=== PATIENT | male | born 1940 | race Hispanic/Latino ===

== ENCOUNTER 2017-09-10 07:31 | Inpatient (IN) | payer MEDICARE, OTHER ==
--- NOTE | 2017-09-10 07:51 | ED PDOC ---
Arrival/HPI - General Chief Complaint: Shortness Of Breath Time Seen by Provider: 09/10/17 07:32 Historian: Patient - Critical Care Critical Care Minutes: 30 minutes - History of Present Illness Time/Duration: Other (3 weeks) Symptom Onset: Gradual Symptom Course: Worsening Severity Level: Moderate Activities at Onset: Rest Associated Symptoms (Text): 09/10/17 07:48 Patient complains of approximately a 3 week history of a cough congestion and shortness of breath. He has been seen by his PMD 3 times and the msws once with no improvement. He has had outpatient blood work and chest x-ray which are unrevealing. The shortness of breath became worse overnight. He denies any pain. He had a fever of 101. No chest pain. No sputum. No wheezing. There is a history of a pulmonary embolus many years ago following surgery for colon cancer. He is scheduled for an echocardiogram tomorrow. No history of coronary disease or CHF. He also had a urinalysis done at the beginning of his illness which was normal. He had negative blood cultures done on 09/07/2017. No abdominal pain nausea vomiting or diarrhea. No genitourinary symptoms. No injury or trauma. PMD: Dr. Lin Past Medical History - Provider Review Nursing Documentation Reviewed: Yes - Cardiac Hx Hypertension: Yes - Pulmonary Hx Respiratory Disorders: Yes Hx Lung Cancer: Yes (Had Chemo) Hx Pulmonary Embolism: Yes - Endocrine/Metabolic Hx Diabetes Mellitus Type 1: Yes - Psychiatric Hx Substance Use: No - Surgical History Other/Comment: Colon CA removal. Knee replacement. Kidney surgery. - Anesthesia Hx Anesthesia: Yes Hx Anesthesia Reactions: No Hx Malignant Hyperthermia: No Family/Social History - Physician Review Nursing Documentation Reviewed: Yes Family/Social History: Unknown Family HX Smoking Status: Never Smoked Hx Alcohol Use: No Hx Substance Use: No Allergies/Home Meds Allergies/Adverse Reactions: Allergies Penicillins Allergy (Verified 09/10/17 07:38) URTICARIA sulfamethoxazole [From Bactrim] Allergy (Verified 09/10/17 07:38) FATIGUE Confusion trimethoprim [From Bactrim] Allergy (Verified 09/10/17 07:38) FATIGUE Confusion morphine Adverse Reaction (Verified 09/10/17 07:38) VOMITING low bp Home Medications: Home Meds Medication Instructions Recorded Confirmed Chlorthalidone [Hygroton] 12.5 mg PO DAILY 09/10/17 09/10/17 Dutasteride [Avodart] 0.5 mg PO DAILY 09/10/17 09/10/17 GlipiZIDE [Glucotrol] 5 mg PO BID 09/10/17 09/10/17 Levothyroxine [Synthroid] 75 mcg PO DAILY 09/10/17 09/10/17 Linagliptin [Tradjenta] 5 mg PO DAILY 09/10/17 09/10/17 [id number] Ethyl Esters 1 GM 1 gm PO BID 09/10/17 09/10/17 [Lovaza] Simvastatin [Zocor] 20 mg PO DAILY 09/10/17 09/10/17 Warfarin [Coumadin] 7.5 mg PO DAILY 09/10/17 09/10/17 Review of Systems - Physician Review All systems were reviewed & negative as marked: Yes - Review of Systems Constitutional: Fatigue, Fevers Respiratory: SOB, Cough. absent: Sputum, Wheezing Cardiovascular: absent: Chest Pain, Palpitations, Syncope Gastrointestinal: absent: Abdominal Pain, Diarrhea, Nausea, Vomiting Genitourinary Male: absent: Dysuria, Frequency, Hematuria Skin: absent: Rash Neurological: absent: Headache, Dizziness, Focal Weakness Physical Exam Vital Signs Reviewed: Yes Vital Signs Temp Pulse Resp BP Pulse Ox 09/10/17 09:42 85 16 126/75 93 L 09/10/17 09:10 89 16 121/74 93 L 09/10/17 09:09 121/74 09/10/17 08:00 16 94 L 09/10/17 07:46 99.2 F 108 H 142/71 94 L Temperature: Afebrile Blood Pressure: Normal Pulse: Regular Respiratory Rate: Tachypneic Appearance: Positive for: Well-Appearing, Non-Toxic, Uncomfortable, Other (Mild respiratory distress with tachypnea) Pain Distress: None Mental Status: Positive for: Alert and Oriented X 3 - Systems Exam Head: Present: Atraumatic, Normocephalic Pupils: Present: PERRL Extroacular Muscles: Present: EOMI Conjunctiva: Present: Normal Ears: Present: NORMAL TM, Normal Canal. No: Erythema Mouth: Present: Moist Mucous Membranes Pharnyx: No: ERYTHEMA, EXUDATE, TONSILS ENLARGED Neck: Present: Normal Range of Motion Respiratory/Chest: Present: Respiratory Distress, Decreased Breath Sounds, Rales (Bibasilar rales, mild), Tachypneic. No: Accessory Muscle Use, Wheezes, Retracting, Rhonchi, Tender to Palpation Cardiovascular: Present: Regular Rate and Rhythm, Normal S1, S2, Tachycardic. No: Murmurs Abdomen: Present: Normal Bowel Sounds, Hernias. No: Tenderness, Distention, Peritoneal Signs, Rebound, Guarding Back: Present: Normal Inspection. No: CVA Tenderness Upper Extremity: Present: Normal Inspection. No: Cyanosis, Edema Lower Extremity: Present: Normal Inspection. No: Edema Neurological: Present: GCS=15, CN II-XII Intact, Speech Normal, Motor Func Grossly Intact Skin: Present: Warm, Dry, Normal Color. No: Rashes Psychiatric: Present: Alert, Oriented x 3, Normal Insight, Normal Concentration Medical Decision Making ED Course and Treatment: 09/10/17 08:04 EKG shows normal sinus rhythm rate approximately 100 with a right bundle branch block and no acute ST or T-wave changes, Q waves inferiorly and anteriorly and no old available for comparison 09/10/17 08:08 Patient has an elevated lactate, but an x-ray consistent with possible CHF or bilateral pneumonia. He will not be given IV fluids until BNP is available and chest x-ray is reviewed by radiologist. 09/10/17 08:48 Chest x-ray as read by the radiologist is consistent with pulmonary edema or bilateral pneumonia. Still waiting for BNP. 09/10/17 09:31 Discussed with , Shama and Carole who excepts the ICU. - Lab Interpretations Lab Results: 09/10/17 08:00 09/10/17 08:00 Lab Results 09/10/17 09:28: POC Glucose (mg/dL) 300 H 09/10/17 08:48: Urine Color Yellow, Urine Appearance Clear, Urine pH 5.5, Ur Specific [place] 1.025, Urine Protein 30 H, Urine Glucose (UA) 250 H, Urine Ketones Negative, Urine Blood Large H, Urine Nitrate Negative, Urine Bilirubin Negative, Urine Urobilinogen 0.2, Ur Leukocyte Esterase Small H, Urine RBC Tntc , Urine WBC 10 - 15, Ur Epithelial Cells 0 - 2, Urine Bacteria Small 09/10/17 08:37: pCO2 31 L, pO2 49.0 L, HCO3 22.6, ABG pH 7.47 H, ABG Total CO2 23.6, ABG O2 Saturation 88.2 L, ABG O2 Content 13.2 L, ABG Base Excess -0.5, ABG Hemoglobin 11.0 L, ABG Carboxyhemoglobin 2.8 H, POC ABG HHb (Measured) 11.4 H, ABG Methemoglobin 0.7, ABG O2 Capacity 15.0 L, Hgb O2 Saturation 85.2 L, FiO2 21.0 09/10/17 08:30: PT 35.4 H, INR 3.14 H, APTT 29.0, D-Dimer, Quantitative 699 H 09/10/17 08:14: POC Glucose (mg/dL) 334 H 09/10/17 08:00: Sodium 136, Chloride 101, Potassium 4.0, Carbon Dioxide 25, Anion Gap 14, BUN 37 H, Creatinine 1.0, Est GFR ( Amer) > 60, Est GFR ( Non-Af Amer) > 60, Random Glucose 331 H* D, Calcium 9.6, Total Bilirubin 1.3, AST 20, ALT 33, Alkaline Phosphatase 56, Lactate Dehydrogenase 578, Total Creatine Kinase 44, Troponin I 0.26 H*, NT-Pro-B Natriuret Pep 89358 H, Total Protein 6.9, Albumin 3.6, Globulin 3.3, Albumin/Globulin Ratio 1.1 09/10/17 08:00: pO2 38, VBG pH 7.34, VBG pCO2 49.0, VBG HCO3 26.4, VBG Total CO2 27.9, VBG O2 Sat (Calc) 68.7 H, VBG Base Excess 0.0, VBG Potassium 3.9, Sodium 135.0, Chloride 100.0, Glucose 356 H, Lactate 2.3 H, FiO2 21.0, Venous Blood Potassium 3.9 09/10/17 08:00: WBC 10.6, RBC 4.41, Hgb 12.2 L, Hct 37.5 L, MCV 85.0, MCH 27.7, MCHC 32.5, RDW 14.1, Plt Count 221, MPV 10.0, Gran % 84.5 H, Lymph % (Auto) 8.4 L, [place] % (Auto) 6.1 H, Eos % (Auto) 0.8 L, Baso % (Auto) 0.2, Gran # 8.94 H, Lymph # 0.9 L, [place] # 0.7 H, Eos # 0.1, Baso # 0.02 I have reviewed the lab results: Yes - RAD Interpretation Radiology Orders: 09/10/17 07:46 CHEST PORTABLE [RAD] Stat Chest one view shows bilateral infiltrates or pulmonary edema. Mild cardiomegaly. Cook Mess: ED Physician - EKG Interpretation Interpreted by ED Physician: Yes Type: 12 lead EKG - Medication Orders Current Medication Orders: Atorvastatin Calcium (Lipitor) 10 mg PO HS HUMBERTO Furosemide (Lasix) 40 mg IVP DAILY HUMBERTO Glipizide (Glucotrol) 5 mg PO BID HUMBERTO Insulin Human Regular (Humulin R Med) 0 units SC ACHS HUMBERTO PRN Reason: Protocol Levothyroxine Sodium (Synthroid) 75 mcg PO DAILY HUMBERTO Discontinued Medications Aspirin (Aspirin Chewable) 324 mg PO ONCE ONE Stop: 09/10/17 08:50 Last Admin: 09/10/17 09:09 Dose: 324 mg Furosemide (Lasix) 40 mg IVP ONCE ONE Stop: 09/10/17 08:50 Last Admin: 09/10/17 09:09 Dose: 40 mg MAR Blood Pressure Document 09/10/17 09:09 AD (Rec: 09/10/17 09:09 [id number] Blood Pressure Blood Pressure (100/60-150/90) 121/74 IVP Administration Document 09/10/17 09:09 AD (Rec: 09/10/17 09:09 AD [id number]) Charges for Administration # of IVP Administrations 1 Levofloxacin/Dextrose (Levaquin 500mg) 500 mg in 100 mls @ 100 mls/hr IVPB STAT STA Stop: 09/10/17 08:59 Last Admin: 09/10/17 08:44 Dose: 100 mls/hr eMAR Start Stop Document 09/10/17 08:44 AD (Rec: 09/10/17 08:44 AD [id number]) Intravenous Solution Start Date 09/10/17 Start Time 08:44 Insulin Human Regular (Humulin R) 20 units SC ONCE STA Stop: 09/10/17 08:19 Last Admin: 09/10/17 08:44 Dose: 20 units MAR Blood Glucose Document 09/10/17 08:44 AD (Rec: 09/10/17 08:44 AD [id number]) Blood Glucose Finger Stick Blood Glucose (70-120) 334 Subcutaneous Administrations Document 09/10/17 08:44 AD (Rec: 09/10/17 08:44 AD [id number]) Injection Site MAR Injection Site Left Abdomen Charges for Administration # of Subcutaneous Administrations 1 Nitroglycerin (Nitro-Bid 2% Oint) 1 ea TOP STAT STA Stop: 09/10/17 08:50 Last Admin: 09/10/17 09:09 Dose: 1 ea Disposition/Present on Arrival - Present on Arrival Any Indicators Present on Arrival: No History of DVT/PE: Yes History of Uncontrolled Diabetes: No Urinary Catheter: No History of Decub. Ulcer: No History Surgical Site Infection Following: None - Disposition Have Diagnosis and Disposition been Completed?: Yes Diagnosis: Pulmonary edema, Myocardial infarction, Hypoxia, Hyperglycemia, Elevated d- dimer, Dyspnea, Lactic acidosis Disposition: HOSPITALIZED Disposition Time: 09:33 Patient Plan: Admission, ICU Patient Problems: Current Active Problems Problem Status Onset Dyspnea Acute Elevated d-dimer Acute Hyperglycemia Acute Hypoxia Acute Lactic acidosis Acute Myocardial infarction Acute Pulmonary edema Acute Condition: CRITICAL
[2017-09-10] MEDS ORDERED: levoFLOXacin 500 mg in D5W 500 MG/100 ML BAG IVPB STA (08:00)
[2017-09-10 08:04] LABS: VENOUS BLOOD PH 7.34 (7.32-7.43)
[2017-09-10] MEDS ORDERED: Insulin Regular 1 UNITS/0.01 ML ML SC STA (08:18)
[2017-09-10 08:20] LABS: BASO # 0.02 K/mm3 (0.0-2.0); BASO % 0.2 % (0.0-3.0); EOS # 0.1 (0.0-0.7); EOS % 0.8 % (1.5-5.0); GRAN # 8.94 (1.4-6.5); GRAN % 84.5 % (50.0-68.0); HEMATOCRIT 37.5 % (42.0-52.0); LYMPH # 0.9 (1.2-3.4); LYMPH % 8.4 % (22.0-35.0); MEAN CORPUSCULAR HEMOGLOBIN 27.7 pg (25.0-35.0); MEAN CORPUSCULAR HGB CONC 32.5 g/dl (31.0-37.0); MONO # 0.7 (0.1-0.6); MONO % 6.1 % (1.0-6.0); RED CELL DISTRIBUTION WIDTH 14.1 % (11.5-14.5); WHITE BLOOD COUNT 10.6 10^3/ul (4.5-11.0)
--- NOTE | 2017-09-10 08:42 | RAD ---
HISTORY: sob COMPARISON: No prior. FINDINGS: LUNGS: Extensive diffuse bilateral opacity, nonspecific. This may reflect a pneumonia or pulmonary edema. PLEURA: Small right pleural effusion. No evidence of left pleural effusion. No pneumothorax. CARDIOVASCULAR: Normal. OSSEOUS STRUCTURES: No significant abnormalities. VISUALIZED UPPER ABDOMEN: Normal. OTHER FINDINGS: None. IMPRESSION: Extensive bilateral pulmonary opacity. Nonspecific. See above. Small right pleural effusion.
[2017-09-10 08:47] LABS: ARTERIAL BLOOD GAS HCO3 22.6 mmol/L (21-28); ARTERIAL BLOOD GAS O2 CONTENT 13.2 ML/dl (15-23); ARTERIAL BLOOD GAS PH 7.47 (7.35-7.45); ARTERIAL BLOOD HGB O2 SAT 85.2 % (95.0-98.0); CARBOXYHEMOGLOBIN 2.8 % (0.5-1.5); HHB 11.4 % (0-5); METHEMOGLOBIN 0.7 % (0.0-3.0)
[2017-09-10 08:48] LABS: ALB/GLOB RATIO 1.1 (1.1-1.8); ALKALINE PHOSPHATASE 56 U/L (38-126); ALT/SGPT 33 U/L (7-56); AST/SGOT 20 U/L (17-59); BILIRUBIN,TOTAL 1.3 mg/dL (0.2-1.3); BLOOD UREA NITROGEN 37 mg/dL (7-21); CALCIUM 9.6 mg/dL (8.4-10.5); CARBON DIOXIDE 25 mmol/L (21-33); CHLORIDE 101 mmol/L (98-107); GFR AFRICAN-AMERICAN > 60; SODIUM 136 mmol/L (132-148); TOTAL PROTEIN 6.9 g/dL (5.8-8.3); TROPONIN I 0.26 ng/mL
[2017-09-10] MEDS ORDERED: Nitroglycerin 2% Ointment Foilpak UD TOP STA (08:49)
[2017-09-10 08:59] LABS: INR 3.14 (0.93-1.08)
[2017-09-10 09:04] LABS: PH,URINE 5.5 (4.7-8.0); URINE BILIRUBIN NEGATIVE (NEGATIVE); URINE BLOOD LARGE (NEGATIVE); URINE GLUCOSE (UA) 250 mg/dL (NEGATIVE); URINE KETONE NEGATIVE (NEGATIVE); URINE LEUKOCYTE ESTERASE SMALL Leu/uL (NEGATIVE); URINE PROTEIN 30 mg/dL (<30 mg/dL); URINE UROBILINOGEN 0.2 E.U./dL (<1 E.U./dL)
[2017-09-10 09:05] LABS: GLUCOSE,RANDOM 331 mg/dL (70-110)
[2017-09-10 09:08] LABS: URINE APPEARANCE CLEAR (CLEAR); URINE COLOR YELLOW (YELLOW)
[2017-09-10 09:22] LABS: URINE BACTERIA SMALL (NEG); URINE EPITHELIAL CELLS 0 - 2 /hpf (0-5); URINE RBC TNTC /hpf (0-2)
[2017-09-10] MEDS ORDERED: Insulin Regular 100 UNITS in Sodium Chloride 0.9% 99 ML IV PRN (10:50)
[2017-09-10 11:25] LABS: VENOUS BLOOD PH 7.46 (7.32-7.43)
[2017-09-10 11:54] VITALS: BMI 25.9
[2017-09-10] MEDS: Aztreonam 1 Gm in NS 100mL 100 ML IVPB SCH ×2 (14:47→21:51)
--- NOTE | 2017-09-10 14:52 | CARD ---
APPROVED REPORT EKG Measurement Heart [id number] <Conclusion> Sinus rhythm with 1st degree AV block Left axis deviation Right bundle branch block Anteroseptal infarct, age undetermined Abnormal ECG
[2017-09-10] MEDS ORDERED: Vancomycin 1gm in NS 250ml 1 GM/250 ML BAG IVPB ONE (15:01)
--- NOTE | 2017-09-10 15:06 | CP.PCM.CON ---
History of Present Illness - History of Present Illness History of Present Illness: 77 year old male with PMH of pulmonary embolism many years ago on anticoagulation, DM, HTN, history colon cancer S/P surgery, history of lung cancer and bilateral lung base pulmonary fibrosis S/P chemotherapy, history of kidney surgery and knee replacement was brought in to [facility] because of worsening cough and SOB over the past 1-2 days. He was seen last by his Roller Turner 3 days ago, was having cough, but not as severe and was not short of breath at that time. About 2-3 weeks ago, he started having cough and some shortness of breath as well as generalized weakness. A week later he developed some fevers at home and saw his PMD and was given Levaquin. After completion of the course, his cough improved. He has not had fever since a week ago. Yesterday he was having symptoms of heartburn as well. He denies headache or dizziness, no chest pain, no rhinorrhea, no sore throat, no nausea or vomiting, no dysuria, no abdominal pain, no diarrhea. He denies recent travel outside of [place] in the past 3 months and denies animal contacts. He states that he has received pneumococcal vaccines and Flu vaccine this year. In the ED, he had CXR done which showed bilateral pulmonary infiltrates. He has been given diuretics and his breathing has improved. There is still concern for pneumonia and Infectious diseases consult is requested to further evaluate and manage. Review of Systems - Review of Systems All systems: reviewed and no additional remarkable complaints except (as per HPI ) Past Patient History - Past Social History Smoking Status: Never Smoked - CARDIAC Hx Hypertension: Yes - PULMONARY Hx Respiratory Disorders: Yes Hx Lung Cancer: Yes (Had Chemo) Hx Pulmonary Embolism: Yes - ENDOCRINE/METABOLIC Hx Diabetes Mellitus Type 1: Yes - MUSCULOSKELETAL/RHEUMATOLOGICAL Hx Falls: Yes - GASTROINTESTINAL Other/Comment: hx colon Ca with partial colectomy - PSYCHIATRIC Hx Substance Use: No - SURGICAL HISTORY Other/Comment: Colon CA removal. Knee replacement. Kidney surgery. - ANESTHESIA Hx Anesthesia: Yes Hx Anesthesia Reactions: No Hx Malignant Hyperthermia: No Meds Allergies/Adverse Reactions: Allergies Allergy/AdvReac Type Severity Reaction Status Date / Time Penicillins Allergy URTICARIA Verified 09/10/17 07:38 sulfamethoxazole Allergy FATIGUE Verified 09/10/17 07:38 [From Bactrim] trimethoprim [From Bactrim] Allergy FATIGUE Verified 09/10/17 07:38 morphine AdvReac VOMITING Verified 09/10/17 07:38 - Medications Medications: Current Medications Atorvastatin Calcium (Lipitor) 10 mg PO HS HUMBERTO Furosemide (Lasix) 40 mg IVP DAILY [facility] Insulin Human Regular 100 (units/ Sodium Chloride) 100 mls @ 3 mls/hr IV .Q24H PRN; Protocol; 3 UNITS/HR PRN Reason: TITRATE PER MD ORDER Last Admin: 09/10/17 12:08 Dose: 5 units/hr, 5 mls/hr Insulin Human Regular (Humulin R Med) 0 units SC ACHS HUMBERTO PRN Reason: Protocol Levothyroxine Sodium (Synthroid) 75 mcg PO DAILY HUMBERTO Metoprolol Tartrate (Lopressor) 25 mg PO Q12 HUMBERTO Physical Exam - Constitutional Appears: Non-toxic, No Acute Distress - Head Exam Head Exam: NORMAL INSPECTION - ENT Exam ENT Exam: Mucous Membranes Moist - Neck Exam Neck exam: Negative for: Lymphadenopathy, Meningismus - Respiratory Exam Respiratory Exam: Rales (scattered) - Cardiovascular Exam Cardiovascular Exam: +S1, +S2 - GI/Abdominal Exam GI & Abdominal Exam: Soft. absent: Tenderness Results - Vital Signs Recent Vital Signs: Last Vital Signs Temp 97.9 F 09/10/17 10:01 Pulse 89 09/10/17 12:30 Resp 27 H 09/10/17 12:30 BP 110/58 L 09/10/17 12:00 Pulse Ox 93 L 09/10/17 12:30 - Labs Result Diagrams: 09/10/17 08:00 09/10/17 08:00 Labs: Laboratory Results - last 24 hr 09/10/17 11:20 pO2 48 VBG pH 7.46 H VBG pCO2 36.0 L VBG HCO3 25.6 VBG Total CO2 26.7 VBG O2 Sat (Calc) 86.0 H VBG Base Excess 2.0 VBG Potassium 3.4 L Sodium 134.0 Chloride 102.0 Glucose 269 H Lactate 2.1 FiO2 21.0 Venous Blood Potassium 3.4 L Assessment & Plan - Assessment and Plan (Free Text) Plan: Assessment Systemic Inflammatory Response Syndrome (tachypnea and tachycardia), consider due to acute pulmonary edema possibly from acute CHF R/O acute myocardial infarction, R/O healthcare-associated pneumonia (since the patient was on Levaquin about a week ago) history of pulmonary embolism many years ago on anticoagulation DM HTN history colon cancer S/P surgery history of lung cancer and bilateral lung base pulmonary fibrosis S/P chemotherapy history of kidney surgery and knee replacement Plan Started the patient on a dose of IV Vancomycin, as well Azactam and Doxycycline pending blood cx, procalcitonin, urine Legionella Ag; patient currently has no fever and WBC count is normal, making acute CHF more likely, but still need to rule out pneumonia will monitor clinically discussed with family
[2017-09-10] MEDS: Insulin Reg-MEDIUM-Coverage SC SCH ×2 (15:44→18:39)
[2017-09-10] MEDS: Levothyroxine 75 MCG TAB PO SCH (15:45)
--- NOTE | 2017-09-10 21:51 | HP ---
CHIEF COMPLAINT AND HISTORY OF PRESENT ILLNESS: This is a 77-year-old male who is coming in to the hospital because of cough, congestion, and difficulty breathing. He had gone to his rim fire priming operator, who had an EKG done. He states the EKG was okay. He had seen Dr. Sesay. The patient has been having worsening in his cough and congestion, so came in for further evaluation. He was found to be hypoxic in the emergency room. He was placed on O2. His O2 saturation was 85%. He says he is feeling a bit better. He was given IV Lasix because of chest x-ray that shows pulmonary congestion. He has no nausea, no vomiting. The family states he has been having a fever of 101 at home. No headaches, no dizziness. No dysuria or frequency. No nocturia. All of the review of symptoms are within normal limits except what is mentioned. ALLERGIES: PENICILLIN, SULFAMETHOXAZOLE, TRIMETHOPRIM AND MORPHINE. PAST MEDICAL HISTORY: Hypertension, diabetes type 2, hypothyroidism, lung cancer. He had colon cancer. PAST SURGICAL HISTORY: Knee replacement and kidney surgery. SOCIAL HISTORY: He never smoked. He denies drug use. PHYSICAL EXAMINATION VITAL SIGNS: He has a temperature of 99.2, pulse of 108, blood pressure is 142/71, respirations 94. Height is 6 feet 1 inch, weight is 195 pounds. BMI is 25.7. GENERAL: The patient lying in bed, uncomfortable, and in no acute distress. HEENT: Atraumatic and normocephalic. Anicteric sclerae. Moist mucosa. [place] conjunctivae. No oral lesions. NECK: No JVD, anterior and posterior adenopathy, thyromegaly, or bruits. CARDIOVASCULAR: S1 and S2 regular. No murmur, rubs, or gallop. LUNGS: Good bilateral air entry. Bilateral rales at the bases, no rhonchi. ABDOMEN: Bowel sounds are positive. Soft, nontender and nondistended. No hepatosplenomegaly. No rebound and no guarding. EXTREMITIES: No cyanosis, clubbing, or edema. NEUROLOGIC: No facial asymmetry. Tongue is midline. No uvula deviation. Power is 5/5 upper extremity and lower extremity. Sensation intact in upper extremity and lower extremity. PSYCHIATRIC: She is awake, alert and oriented x3. No anxiety or depression. She has normal affect. GENITOURINARY: No CVA tenderness. VASCULAR: 2+ pulses in the carotid pulses and pedal pulses. SKIN: No erythema or nodules SPINE: Shows normal curvature. EXTREMITIES: No Cyanosis and clubbing, no edema. LABORATORY DATA: White count of 10.6, hemoglobin 12.2 and platelet count is 221. INR is 3.1. D-dimer is 699. He has blood gas that showed a pH of 7.47, his pCO2 is 31, his bicarb is 25. He has a troponin of 0.26, proBNP is 11,300. His albumin is 3.6. His urine shows blood is large, nitrites are negative, bilirubin is negative. Chest x-ray shows bilateral pulmonary edema. His EKG shows sinus tachycardia at 100. He has first degree AV block. QTc is 469. He has right bundle-branch block. ASSESSMENT: 1. Acute congestive heart failure. 2. Penicillin allergy/Bactrim allergy. 3. Diabetes type 2. 4. Hypothyroidism. 5. Hypertension. PLAN: The patient is going to be admitted to the hospital into the ICU. He is given IV diuretic therapy. He was started on IV antibiotics. Blood cultures and urine cultures have been done. He will need an echocardiogram. I will continue his Zocor for his dyslipidemia. He is going to be on Synthroid for hypothyroidism. He is also going to need beta-blockers because of his elevated troponin. He may have acute coronary syndrome. We will repeat his troponin. We will get Cardiology evaluation as well as ID evaluation. Aiden Lin MD
--- NOTE | 2017-09-10 22:36 | PN ---
DATE: 09/10/2017 HISTORY OF PRESENT ILLNESS: This is a 77-year-old gentleman with history of diabetes, high blood pressure, who presented with a few weeks history of cough, congestion and shortness of breath. His symptoms did not go away. He did not complain of chest pain though; however, his physical tolerance became more and more limited due to shortness of breath. He had low grade fever but no chills, sweats. No nausea, no vomiting, no diarrhea. The patient denies wheezing. The patient has a remote history of pulmonary embolus following surgery for colon cancer. He was scheduled for echocardiogram for tomorrow. Of note, he did not have a history of coronary artery disease or CHF. PAST MEDICAL HISTORY: Hypertension, lung cancer, diabetes, history of colon CA in the past. SOCIAL HISTORY: The patient is a lifelong nonsmoker. No alcohol or illicit drug abuse. FAMILY HISTORY: Noncontributory. ALLERGIES: PENICILLIN, SULFA DRUGS, MORPHINE. HOME MEDICATIONS: Chlorthalidone, Avodart, Glucotrol, Synthroid, Tradjenta, Zocor, and warfarin. REVIEW OF SYSTEMS: Review of 12-organ system other than mentioned in history of present illness is negative. PHYSICAL EXAMINATION: VITAL SIGNS: Temperature 99.2, heart rate 85, blood pressure 126/75, respiratory rate 16, oxygen saturation 93% on 2 liters nasal cannula. ENT: Head and neck atraumatic. LUNGS: Few crackles bibasilar. HEART: Regular rate and rhythm. S1 and S2 normal. ABDOMEN: Soft, nontender, nondistended. MUSCULOSKELETAL: Trace bilateral pedal and ankle edema. NEURO: The patient moves all extremities spontaneously. SKIN: Moist. PSYCH: The patient is alert and oriented x3. LABORATORY DATA: INR 3.14. WBC 10.6, hemoglobin 12.2, platelet count 221. Sodium 136, potassium 4, chloride 101, carbon dioxide 25, BUN 37, creatinine 1, glucose 300, AST 20, ALT 30, total bilirubin 1.3, troponin 0.16. ProBNP 11,300. IMAGING STUDIES: Chest x-ray showed bilateral vascular congestion versus interstitial infiltrate bilaterally. EKG showed right bundle-branch block with left anterior fascicular block. Substantial T-wave inversion in V2, V3, V4, which appears to be correspond to septal ischemia. ASSESSMENT AND PLAN: This is a 77-year-old gentleman who presented with acute or subacute cardiogenic pulmonary edema due to [id number] myocardial infarction/congestive heart failure. The patient will be on aspirin, beta-blockers, and statins. The patient has been on Coumadin for history of pulmonary embolism and his INR is therapeutic. Whether or not to add Plavix will be deferred to cardiology service which also was called. We will order echocardiogram as well. We will trend troponin. Possibility of septic cardiomyopathy rather than primary cardiac event cannot be ruled out as therapeutic AC makes coronary tromboembolic event less likely. The patient also had low-grade fever. I agree with septic workup, procalcitonin and antibiotics at present time. For time being, the patient will be monitoring in the ICU. The patient denies any chest pain, very comfortable, not in respiratory or otherwise distress. The patient has highly elevated glucose. I will start the patient on insulin drip. I will hold the patient's p.o. hypoglycemic (sulfonylurea) to minimize risk of kidney injury. I will continue to target euvolemia, euglycemia, normothermia, and oxygen saturation more than 90%. The patient will be on diuretics. We will continue with gastrointestinal prophylaxis. ccm time 40 min Shay Lam MD MTDAnnelise
[2017-09-11] MEDS: Aztreonam 1 Gm in NS 100mL 100 ML IVPB SCH (05:20)
[2017-09-11 06:58] LABS: HEMATOCRIT 35.7 % (42.0-52.0); MEAN CELL VOLUME 85.2 fl (80.0-105.0); MEAN CORPUSCULAR HEMOGLOBIN 27.4 pg (25.0-35.0); MEAN CORPUSCULAR HGB CONC 32.2 g/dl (31.0-37.0); MEAN PLATELET VOLUME 9.8 fl (7.0-11.0); RED CELL DISTRIBUTION WIDTH 14.5 % (11.5-14.5); WHITE BLOOD COUNT 10.4 10^3/ul (4.5-11.0)
[2017-09-11 07:24] LABS: ALKALINE PHOSPHATASE 50 U/L (38-126); ALT/SGPT 32 U/L (7-56); AST/SGOT 21 U/L (17-59); BLOOD UREA NITROGEN 33 mg/dL (7-21); CALCIUM 9.7 mg/dL (8.4-10.5); CARBON DIOXIDE 27 mmol/L (21-33); CHLORIDE 105 mmol/L (98-107); GFR AFRICAN-AMERICAN > 60; GLUCOSE,RANDOM 152 mg/dL (70-110); MAGNESIUM 1.8 mg/dL (1.7-2.2); PHOSPHOROUS 2.8 mg/dL (2.5-4.5); POTASSIUM 3.9 mmol/L (3.6-5.0); SODIUM 139 mmol/L (132-148); TOTAL PROTEIN 6.4 g/dL (5.8-8.3)
[2017-09-11 08:06] LABS: TROPONIN I 0.48 ng/mL
--- NOTE | 2017-09-11 08:54 | RAD ---
HISTORY: sob, repeat study COMPARISON: Portable chest 09/10/2017. FINDINGS: LUNGS: Heterogeneous bilateral infiltrates are worsened at the apices, right greater than left, however, bilateral bases appear better aerated with diminishing infiltrates appreciated there. PLEURA: Minimal right pleural effusion is questioned. None is seen the left and there is no pneumothorax bilaterally. CARDIOVASCULAR: Stable prominent cardiac silhouette. No definite pulmonary vascular derangement. OSSEOUS STRUCTURES: No significant abnormalities. VISUALIZED UPPER ABDOMEN: Normal. OTHER FINDINGS: None. IMPRESSION: Mixed pattern of increasing bilateral upper lobe airspace disease and diminished mid to inferior pulmonary airspace disease. Minimal right pleural effusion not excluded. Stable cardiomegaly.
[2017-09-11] MEDS: Levothyroxine 75 MCG TAB PO SCH (09:28)
[2017-09-11 10:05] LABS: INR 3.53 (0.93-1.08)
--- NOTE | 2017-09-11 10:28 | CP.PCM.PN ---
Subjective - Date & Time of Evaluation Date of Evaluation: 09/11/17 Time of Evaluation: 10:10 - Subjective Subjective: Still has shortness of breath even at rest, cough is slightly improved, no fevers overnight, no nausea or vomiting, no diarrhea. Objective - Vital Signs/Intake and Output Vital Signs (last 24 hours): Temp Pulse Resp BP Pulse Ox 97.9 F 92 H 28 H 137/84 88 L 09/10/17 10:01 09/11/17 06:31 09/11/17 06:31 09/11/17 06:31 09/11/17 06:31 Intake and Output: 09/10/17 09/11/17 18:59 06:59 Intake Total 590 500 Output Total 1300 800 Balance -710 -300 - Medications Medications: Current Medications Atorvastatin Calcium (Lipitor) 40 mg PO HS [facility] Last Admin: 09/10/17 21:52 Dose: 40 mg Doxycycline Hyclate (Doryx) 100 mg PO Q12 [facility] PRN Reason: Protocol Last Admin: 09/10/17 21:52 Dose: 100 mg Furosemide (Lasix) 40 mg IVP DAILY [facility] Insulin Human Regular 100 (units/ Sodium Chloride) 100 mls @ 3 mls/hr IV .Q24H PRN; Protocol; 3 UNITS/HR PRN Reason: TITRATE PER MD ORDER Last Admin: 09/10/17 12:08 Dose: 5 units/hr, 5 mls/hr Aztreonam (Azactam 1 Gm) 100 mls @ 100 mls/hr IVPB Q8 [facility] PRN Reason: Protocol Stop: 09/17/17 14:01 Last Admin: 09/11/17 05:20 Dose: 100 mls/hr Insulin Human Regular (Humulin R Med) 0 units SC ACHS [facility] PRN Reason: Protocol Last Admin: 09/10/17 18:39 Dose: Not Given Levothyroxine Sodium (Synthroid) 75 mcg PO DAILY [facility] Last Admin: 09/10/17 15:45 Dose: Not Given Metoprolol Tartrate (Lopressor) 25 mg PO Q12 [facility] Last Admin: 09/10/17 21:53 Dose: 25 mg - Labs Labs: PT 35.4 SECONDS (9.4-12.5) H 09/10/17 08:30 INR 3.14 (0.93-1.08) H 09/10/17 08:30 APTT 29.0 Seconds (25.1-36.5) 09/10/17 08:30 - Constitutional Appears: Chronically Ill - Head Exam Head Exam: NORMAL INSPECTION - ENT Exam ENT Exam: Mucous Membranes Moist - Neck Exam Neck Exam: absent: Lymphadenopathy, Meningismus - Respiratory Exam Respiratory Exam: Rales (scattered) - Cardiovascular Exam Cardiovascular Exam: +S1, +S2 - GI/Abdominal Exam GI & Abdominal Exam: Soft. absent: Tenderness Assessment and Plan - Assessment and Plan (Free Text) Plan: Assessment Systemic Inflammatory Response Syndrome (tachypnea and tachycardia), consider due to acute pulmonary edema possibly from acute CHF R/O acute myocardial infarction, R/O atypical healthcare-associated pneumonia (since the patient was on Levaquin about a week ago) history of pulmonary embolism many years ago on anticoagulation DM HTN history colon cancer S/P surgery history of lung cancer and bilateral lung base pulmonary fibrosis S/P chemotherapy history of kidney surgery and knee replacement Plan on Azactam and Doxycycline day 2 - will d/c Azactam; blood cx are negative, procalcitonin is only 0.05; patient currently has no fever and WBC count is normal, making acute CHF more likely, but still need to rule out atypical pneumonia will continue to monitor clinically discussed with family
--- NOTE | 2017-09-11 11:49 | CP.PCM.PN ---
Subjective - Date & Time of Evaluation Date of Evaluation: 09/11/17 Time of Evaluation: 07:40 - Subjective Subjective: Patient seen and examined, reports to be feeling significantly better since yesterday. Denies fever, chills, cough, chest pain, sob. Doing well. CXR reviewed. Objective - Vital Signs/Intake and Output Vital Signs (last 24 hours): Temp Pulse Resp BP Pulse Ox 97.9 F 97 H 24 143/53 L 92 L 09/10/17 10:01 09/11/17 10:10 09/11/17 10:10 09/11/17 10:00 09/11/17 10:10 Intake and Output: 09/11/17 09/11/17 06:59 18:59 Intake Total 500 Output Total 800 Balance -300 - Medications Medications: Current Medications Aspirin (Aspirin Chewable) 81 mg PO DAILY [facility] Last Admin: 09/11/17 10:38 Dose: 81 mg Atorvastatin Calcium (Lipitor) 40 mg PO HS [facility] Last Admin: 09/10/17 21:52 Dose: 40 mg Doxycycline Hyclate (Doryx) 100 mg PO Q12 [facility] PRN Reason: Protocol Last Admin: 09/11/17 09:28 Dose: 100 mg Furosemide (Lasix) 40 mg IVP BID [facility] Insulin Human Regular (Humulin R Med) 0 units SC ACHS [facility] PRN Reason: Protocol Last Admin: 09/10/17 18:39 Dose: Not Given Levothyroxine Sodium (Synthroid) 75 mcg PO DAILY [facility] Last Admin: 09/11/17 09:28 Dose: 75 mcg Metoprolol Tartrate (Lopressor) 25 mg PO Q12 [facility] Last Admin: 09/11/17 09:28 Dose: 25 mg Warfarin Sodium (Coumadin) 7.5 mg PO DAILY [facility] PRN Reason: Protocol Last Admin: 09/11/17 10:38 Dose: Not Given - Labs Labs: 09/11/17 06:30 09/11/17 06:30 PT 39.9 SECONDS (9.4-12.5) H 09/11/17 09:35 INR 3.53 (0.93-1.08) H* 09/11/17 09:35 APTT 29.0 Seconds (25.1-36.5) 09/10/17 08:30 - Constitutional Appears: Well, Non-toxic, No Acute Distress - Head Exam Head Exam: ATRAUMATIC - Eye Exam Eye Exam: EOMI, Normal appearance - ENT Exam ENT Exam: Mucous Membranes Moist - Neck Exam Neck Exam: Normal Inspection - Respiratory Exam Respiratory Exam: NORMAL BREATHING PATTERN Additional comments: bibasilar crackles - Cardiovascular Exam Cardiovascular Exam: REGULAR RHYTHM, +S1, +S2 - GI/Abdominal Exam GI & Abdominal Exam: Soft, Normal Bowel Sounds - Extremities Exam Extremities Exam: Full ROM - Neurological Exam Neurological Exam: Alert, Awake, Oriented x3 Assessment and Plan - Assessment and Plan (Free Text) Assessment: Patient is 77yo male with SOB, CHF, NSTEMI, PNA SOB, resolved CHF, acute on chronic NSTEMI PNA Hx of PE on A/C - currently afebrile, HD stable, comfortable, with no major complaits - CXR reviewed, with improved aeration of the bases, but persistent, RUL opacity , likely signifying improvement in pulm edema, with possible superimposed PNA - ID is following, Procal negative Recommend: - supp o2 as needed - Antiobtiocs as per ID - ASA, Plavix, Statin, BB - NO heparin, due to INR>3 - hold Coumadin today, INR>3 - ECHO - follow up cardiology, ID - IV lasix - GI ppx - DVT ppx - Monitor FS - stable, transfer to telemetry
[2017-09-11] MEDS: Insulin Reg-MEDIUM-Coverage SC SCH ×3 (12:17→22:00)
--- NOTE | 2017-09-11 14:00 | PN ---
DATE: 09/11/2017 SUBJECTIVE: The patient has no complaints of any chest pain, shortness of breath, or headaches. PHYSICAL EXAMINATION: VITAL SIGNS: Temperature is 97.9, pulse is 86, blood pressure 133/76, respirations 12. GENERAL: The patient is lying in bed, flat, comfortable. HEENT: No oral lesion. Anicteric sclerae. Moist mucosa. NECK: No JVD, adenopathy, or thyromegaly. CARDIOVASCULAR: S1 and S2, regular. No murmurs, rubs, or gallops. LUNGS: Clear to auscultation bilaterally. No wheeze, rales, or rhonchi. ABDOMEN: Bowel sounds are positive, soft, nontender and nondistended. EXTREMITIES: No cyanosis, clubbing or edema. LABS: White count of 10.4, hemoglobin 11.5, creatinine is 1.1. ASSESSMENT: 1. Acute congestive heart failure exacerbation. 2. Penicillin/Bactrim allergy. 3. Diabetes type 2. 4. Hypothyroidism. 5. Hypertension. PLAN: The patient is currently comfortable. He says he is feeling better. The patient does have history of lung cancer. He has been started on antibiotics with IV vancomycin as well as Azactam and doxycycline. He has blood cultures, have been negative. His troponins are elevated. He says he is feeling better. He is being followed by Dr. Rivero, for evaluation of pneumonia. Dr. Arora, has seen the patient. The patient is also being followed by Dr. Sesay and Dr. Cordero. I did speak to Dr. Cordero this morning. I will transfer the patient to telemetry. The patient is on Lasix daily. He is urinating. He has negative balance of 1010 of urine. I will place him on his insulin to control his sugars. Aiden Lin MD
--- NOTE | 2017-09-11 17:09 | CON ---
DATE: 09/11/2017 INDICATIONS: Shortness of breath, chest pain, and NSTEMI. HISTORY OF PRESENT ILLNESS: This is a 77-year-old man admitted to the emergency room yesterday when he presented with shortness of breath, cough, congestion, and fever. This has been going on for a couple of weeks. He has received a course of antibiotics. His symptoms initially improved, but then continued and got worse. In the emergency room, he had chest x-ray, which showed bilateral infiltrates. His troponin was elevated. He was admitted to CCU. He was given IV Lasix. This morning, he feels better. He is not short of breath. There is no chest pain. There is no orthopnea, PND, syncope, presyncope, lightheadedness, dizziness, vertigo, palpitations, hemoptysis, abdominal pain, nausea, vomiting, diarrhea, constipation or melena. PAST MEDICAL HISTORY: Notable for hypertension, diabetes, chronic kidney disease, hypothyroidism, pulmonary fibrosis, lung cancer with chemotherapy, remote colon cancer with surgery complicated by pulmonary embolus at that time, and total knee replacement. MEDICATIONS: At the time of admission include Avodart, warfarin, glipizide, chlorthalidone, Lovaza, Synthroid, Tradjenta, and simvastatin. ALLERGIES: HE NOTES ALLERGIES TO PENICILLIN, SULFA, TRIMETHOPRIM, AND MORPHINE. SOCIAL HISTORY: He is a nonsmoker. Does not drink, lives at home. FAMILY HISTORY: Noncontributory. REVIEW OF SYSTEMS: A 10-point review of systems otherwise unremarkable. PHYSICAL EXAMINATION GENERAL: He is a well-developed elderly male in no acute distress, sitting on his bed in the Intensive Care Unit, in no acute distress. VITAL SIGNS: He is in sinus rhythm at 86 beats per minute, blood pressure 133/76, afebrile, respirations 19 to 31, and O2 saturations 88% to 93% on nasal cannula. HEENT: Reveals no neck vein distension, thyromegaly or carotid bruits. Mucous membranes are moist. Conjunctivae pink. NECK: Supple. LUNGS: Bilateral rhonchi, rales at the bases. HEART: Examination of the heart reveals normal first and second heart sounds. There is a soft systolic murmur along the left sternal border. ABDOMEN: Soft. Bowel sounds present. No mass, organomegaly, tenderness, rebound or guarding. No CVA tenderness. No palpable abdominal aortic aneurysm. EXTREMITIES: Reveal no cyanosis, clubbing or edema. NEUROLOGIC: He was awake, alert, and oriented. PSYCHIATRIC: Normal as to mood and affect. SKIN: Warm and dry. No rash or cellulitis. LABORATORY DATA AND IMAGING: Initial chest x-ray revealed extensive bilateral pulmonary opacities, small right pleural effusion. Chest x-ray today reveals mixed pattern of increasing bilateral upper lobe airspace disease and diminished [id number] pulmonary airspace disease. Minimal right pleural effusion. An EKG demonstrates sinus rhythm, right bundle, left anterior hemiblock, anterior septal myocardial infarction age indeterminate. ST elevations V1 through V4 with T-wave inversion, suggestive of injury pattern. White count normal, hemoglobin 11.5, hematocrit 35.7, platelet count normal. PT 35.4, INR 3.14, and PTT 29. D-dimer 699. Blood gasses are noted. Electrolytes unremarkable, BUN 37 creatinine 1.0, blood sugars are in the 250 to 350 range. LFTs unremarkable. First troponin 0.26, repeat 0.59, repeat 0.48. BNP 11,300. Procalcitonin 0.05. Most recent blood sugars in the 105 to 140 range, one reading was 40. Urinalysis is abnormal as noted. Blood culture is no growth at 24 hours. ASSESSMENT: Akil Burns is a 77-year-old man with several weeks of cough, congestion, shortness of breath, fever, with an abnormal chest x-ray suggesting both pneumonias possibly bilateral, and congestive heart failure. He has positive troponin and an abnormal EKG and possible myocardial infarction, acute. PLAN: At this point, he is in the ICU. His symptoms have responded to treatment. He got aspirin. Warfarin is on hold with an INR of 3.1. He got antibiotics. He had an ID consultation. Blood sugars are being covered. He is getting Lasix, Lipitor, metoprolol, Nitropaste, Synthroid, and vancomycin. An echocardiogram is ordered. We will monitor I's and O's and stool for occult blood. I will review his old records and discuss his case with Dr. Sesay, his outpatient general repair mechanic. A CT scan of the chest may be useful at some point. He is having a pulmonary consultation. He is having an infectious disease consultation. We will monitor daily labs, INRs, saturations, and cultures have been obtained. I will follow along with you. I will make additional recommendations based on his clinical course. Anshul Cordero MD [facility]
--- NOTE | 2017-09-12 02:12 | CON ---
PULMONARY CRITICAL CARE CONSULT DATE: 09/11/2017 REFERRING PHYSICIAN: Aiden Lin MD REASON FOR CONSULTATION: Pulmonary edema. HISTORY OF PRESENT ILLNESS: This is a 77-year-old gentleman with past medical history significant for hypertension, diabetes, hypothyroid, history of lung cancer in the remote past, also with history of pulmonary embolism, history of colon cancer, and bilateral pulmonary embolism. About 2 weeks ago, he spiked fever of 102, has URI type of symptoms improved, seen Dr. Sesay as an outpatient last few days because thought having shortness of breath. He was scheduled for echocardiogram as an outpatient, but his shortness of breath increased, came to emergency room, and found to be severely hypoxemic. Chest x-ray shows bilateral pulmonary infiltrate. He is admitted to intensive care unit and treated with diuretics and antibiotics. Today, antibiotics were discontinued. Chest x-ray shows improvement in the infiltrate, but he has suspicious lung infiltrate on the right upper lobe and bibasilar pneumonitis. I spoke to the patient's in detail who informed me that the patient does have some suspicion looking area on the CAT scan, so he had PET scan done at [facility], which was metabolic and , so followup CT of the chest was done last month, which shows no changes, but then new things happened was fever 2 weeks ago and now short of breath and hypoxemia. She admit that the patient has a loud snoring, daytime sleepy, and tired. PAST MEDICAL HISTORY: As per history of present illness. FAMILY HISTORY: No significant cardiopulmonary disease reported. ALLERGIES: PENICILLIN, SULFAMETHOXAZOLE AND TRIMETHOPRIM, AND MORPHINE. MEDICATIONS: He is on aspirin 81 mg daily, Coumadin 7.5 mg which is on hold, doxycycline 100 mg twice a day, insulin coverage, Lasix 40 mg twice a day, Lipitor 40 mg daily, metoprolol tartrate 25 mg twice a day, and Synthroid 75 mcg daily. SOCIAL HISTORY: Never smoked and never drink. REVIEW OF SYSTEMS: No headache. No rhinitis. Admit to loud snoring, daytime sleepy and tired, and short of breath. No chest pain. No nausea. No vomiting. No diarrhea. No leg pain or leg swelling. PHYSICAL EXAMINATION: GENERAL: Lying in the bed, in no acute distress. VITAL SIGNS: Temperature is 98, heart rate is 84, respiratory rate is 22, blood pressure is 117/58, and pulse ox is 90% on nasal cannula. HEENT: Dry mucous membranes. Crowded airway. Mallampati score is 4. NECK: Supple. No JVD. LUNGS: Has left base crackles, scattered rhonchi. HEART: S1 and S2. ABDOMEN: Soft and nontender. No organomegaly. EXTREMITIES: No edema. NEUROLOGIC: Awake, alert, and follow simple commands. LABORATORY DATA: Shows hemoglobin 11.5, hematocrit 35.7, WBC 10.4, and platelets 230. INR 3.53. Had blood gases done yesterday shows pH of 7.47, pCO2 of 31, and O2 was 49. Sodium 139, potassium 3.9, chloride 105, bicarbonate 27, BUN 33, creatinine 1.1, glucose 152, calcium 9.7, phosphorus 2.8, and magnesium 1.8. AST 21, ALT 32, and alkaline phosphatase is 50. Troponin is 0.08 and albumin is 3.2. Microbiology; blood culture has been negative. MRSA nasal is not detected. Urine culture has no growth. Chest x-ray done today shows mixed pattern of increased bilateral upper and lower airspace disease and diminished mid to inferior pulmonary airspace disease, minimal right pleural effusion, and has cardiomegaly. IMPRESSION AND PLAN: Probably has cardiomyopathy, history of aortic stenosis, which described by the as a mild, non-ST elevation myocardial infarction, may have sleep apnea syndrome, cannot rule out pneumonia, and history of pulmonary embolism. I spoke to the patient's at bedside. All the questions answered. I will suggest continue diuretics. We will place him on BiPAP 10/6 at 30% oxygen while sleeping. Needs further cardio workup to assure there is no ischemia. Keep head elevated at 45 degrees. Keep INR 2.5. Once official report of echocardiogram available, we will make further recommendation. Once stable, we will need sleep study and PFT as an outpatient. Thank you and we will follow with you. Thea Coello MD
[2017-09-12 07:26] LABS: BLOOD UREA NITROGEN 36 mg/dL (7-21); CALCIUM 9.9 mg/dL (8.4-10.5); CARBON DIOXIDE 31 mmol/L (21-33); CHLORIDE 103 mmol/L (98-107); GFR AFRICAN-AMERICAN > 60; GLUCOSE,RANDOM 162 mg/dL (70-110); POTASSIUM 3.4 mmol/L (3.6-5.0); SODIUM 140 mmol/L (132-148)
[2017-09-12 07:36] LABS: INR 2.86 (0.93-1.08)
[2017-09-12] MEDS ORDERED: Potassium Chloride 20 mEq ER Tab PO ONE (07:43)
--- NOTE | 2017-09-12 07:59 | CP.PCM.PN ---
Subjective - Date & Time of Evaluation Date of Evaluation: 09/12/17 Time of Evaluation: 07:00 - Subjective Subjective: Stable in ICU. I spoke with his yesterday by phone and this AM at the bedside. No CP or SOB at rest. He feels better. Some tachypnea noted by . V/S noted. RSR PE: Lungs: rales at bases, rhonchi Cor.: S1S2, TERRI Abd.: soft Ext.: no edema Neuro.: alert I/O: 1090/2100 Labs: INR= 2.86, K+= 3.4 BC x2 NG at 24 hours ECG 09/11: RSR, RBBB, LAHB, STTW changes, ASMI, age unknown Echo done: severe LVD, etc. See report CXR 09/12: improved by me but not read yet. Objective - Vital Signs/Intake and Output Vital Signs (last 24 hours): Temp Pulse Resp BP Pulse Ox 98.0 F 85 23 123/65 97 09/12/17 05:52 09/12/17 05:52 09/12/17 05:40 09/12/17 05:30 09/12/17 05:40 - Medications Medications: Current Medications Aspirin (Aspirin Chewable) 81 mg PO DAILY [facility] Last Admin: 09/11/17 10:38 Dose: 81 mg Atorvastatin Calcium (Lipitor) 40 mg PO HS [facility] Last Admin: 09/11/17 21:27 Dose: 40 mg Doxycycline Hyclate (Doryx) 100 mg PO Q12 [facility] PRN Reason: Protocol Last Admin: 09/11/17 21:28 Dose: 100 mg Enoxaparin Sodium (Lovenox) 40 mg SC DAILY [facility] PRN Reason: Protocol Furosemide (Lasix) 40 mg IVP BID [facility] Last Admin: 09/11/17 17:38 Dose: 40 mg Insulin Human Regular (Humulin R Med) 0 units SC ACHS [facility] PRN Reason: Protocol Last Admin: 09/11/17 22:00 Dose: Not Given Levothyroxine Sodium (Synthroid) 75 mcg PO DAILY [facility] Last Admin: 09/11/17 09:28 Dose: 75 mcg Metoprolol Tartrate (Lopressor) 25 mg PO Q12 [facility] Last Admin: 09/11/17 21:28 Dose: 25 mg Potassium Chloride (K-Dur 20 Meq Er Tab) 40 meq PO ONCE ONE Stop: 09/12/17 07:44 Potassium Chloride (K-Dur 20 Meq Er Tab) 20 meq PO BRK [facility] Warfarin Sodium (Coumadin) 7.5 mg PO DAILY [facility] PRN Reason: Protocol Last Admin: 09/11/17 10:38 Dose: Not Given - Labs Labs: 09/11/17 06:30 09/12/17 06:30 PT 32.1 SECONDS (9.4-12.5) H 09/12/17 06:30 INR 2.86 (0.93-1.08) H 09/12/17 06:30 APTT 29.0 Seconds (25.1-36.5) 09/10/17 08:30 Assessment and Plan - Assessment and Plan (Free Text) Assessment: SOB, Cough, fever Abnormal CXR CHF, acute systolic Cardiomyopathy/R/O Recent ME R/O pneumonia HBP Diabetes Hypothyroidism Pulmonary Fibrosis Lung cancer/S/P chemo TKR Colon cancer, s/p resection with post-op PE Plan: Continue IV Lasix Replace K+ Will review echo Cardiac cath: timing to be decided. Hold warfarin for now. Monitor PT/INR daily OOB to chair as jolynn. Monitor: labs, INR's, I/O, sats., K+, etc.
--- NOTE | 2017-09-12 08:13 | RAD ---
HISTORY: infiltrate COMPARISON: Portable chest 09/11/2017. FINDINGS: LUNGS: Persistent infiltrates are seen at the right upper lung zone on the right base interim are mild at the left base in stability further diminished at the left upper lung zone. PLEURA: Trace bilateral pleural effusions are not excluded. No pneumothorax bilaterally. CARDIOVASCULAR: Prominent cardiac silhouette is stable. No definite pulmonary derangement. OSSEOUS STRUCTURES: No significant abnormalities. VISUALIZED UPPER ABDOMEN: Normal. OTHER FINDINGS: None. IMPRESSION: Persistent right upper lung infiltrate as well as of the right base with diminished left upper lung infiltrate. Minimal residual infiltrate noted at the left base once again. Trace bilateral pleural effusions are suspected.
[2017-09-12] MEDS: Insulin Reg-MEDIUM-Coverage SC SCH ×4 (08:48→21:14)
[2017-09-12] MEDS: Levothyroxine 75 MCG TAB PO SCH (09:31)
--- NOTE | 2017-09-12 09:47 | CARD ---
APPROVED REPORT EKG Measurement Heart [id number] <Conclusion> Sinus rhythm with 1st degree AV block Left axis deviation Right bundle branch block Trifasicular block Anteroseptal infarct, age undetermined, possibly recent No change
[2017-09-12] MEDS ORDERED: Enoxaparin 40 mg Syringe SC SCH (10:00)
--- NOTE | 2017-09-12 10:54 | CARD ---
APPROVED REPORT EXAM: Two-dimensional and M-mode echocardiogram with Doppler and color Doppler. Other Information Quality : AverageRhythm : INDICATION Dyspnea , CHF, NSTEMI 2D DIMENSIONS IVSd1.3 (0.7-1.1cm)LVDd5.1 (3.9-5.9cm) PWd1.3 (0.7-1.1cm)LVDs4.5 (2.5-4.0cm) FS (%) 12.4 %LVEF (%)26.0 (>50%) M-Mode DIMENSIONS Aortic Root3.50 (2.2-3.7cm)Aortic Cusp Exc.1.40 (1.5-2.0cm) Aortic Valve AoV Peak Fwuqcrpo640.0cm/sAoV VTI44.6cmAO Peak GR.19mmHg LVOT Peak Wewoaovq87.8cm/sLVOT VTI17.70cmAO Mean GR.9mmHg Mitral Valve MV E Pkoahmyz273.0cm/sMV A [place]15.3cm/sE/A ratio1.5 TDI Lateral E' Peak V6.14cm/sMedial E' Peak V3.41cm/sE/Lateral E'16.9 E/Medial E'30.5 Pulmonary Valve PV Peak Yvxhdrth93.5cm/sPV Peak Grad.3mmHg Tricuspid Valve TR Peak Elkzoieb409vt/sRAP ACVTIUXK61evHuDE Peak Gr.58mmHg [id number] LEFT VENTRICLE The left ventricle is normal size. There is mild concentric left ventricular hypertrophy. Left ventricle systolic function is severely impaired. The Ejection Fraction is 25-30%. There is severe global hypokinesis. The septum and apex appear akinetic. RIGHT VENTRICLE The right ventricle is normal size. ATRIA The left atrium size is normal. The right atrium size is normal. The interatrial septum is intact with no evidence for an atrial septal defect. AORTIC VALVE The aortic valve is mildly calcified. MITRAL VALVE The mitral valve is normal in structure. Mitral regurgitation is mild. TRICUSPID VALVE The tricuspid valve is normal in structure. There is mild tricuspid regurgitation. There is moderate-severe pulmonary hypertension. PULMONIC VALVE The pulmonic valve is not well visualized. There is mild pulmonic valvular regurgitation. GREAT VESSELS The aortic root is normal in size. PERICARDIAL EFFUSION There is no pericardial effusion. <Conclusion> The left ventricle is normal size. There is mild concentric left ventricular hypertrophy. Left ventricle systolic function is severely impaired. The Ejection Fraction is 25-30%. There is severe global hypokinesis. The septum and apex appear akinetic c/w DE. Mitral regurgitation is mild. There is mild tricuspid regurgitation. There is moderate-severe pulmonary hypertension. There is mild pulmonic valvular regurgitation.
--- NOTE | 2017-09-12 11:31 | PN ---
DATE: 09/12/2017 LOCATION: The patient is seen in the CCU 129, bed 5. SUBJECTIVE: He was awake this morning, was seen early this morning. No fevers, no chills. States he is doing well. PHYSICAL EXAMINATION: VITAL SIGNS: Temperature is 98, blood pressure is 123/60, respiratory rate of 25, heart rate of 76. HEENT: Examination of HEENT is unremarkable. NECK: Supple. LUNGS: Decreased breath sounds. HEART: Normal S1, S2. ABDOMEN: [place]man[place] is soft, nontender. LABORATORY DATA: Examination reveals a white count of 10,000, hemoglobin of 11, platelets of 230. Chemistries reveals a BUN of 36, creatinine of 1.2 and. Urinalysis is noted with 10-15 wbc's. Microbiology reveals the patient's blood cultures are negative and urine cultures are negative and review of orders reveals the patient to be on p.o. doxycycline. ASSESSMENT/PLAN: He is a 77-year-old man who was seen early this morning in CCU 129, bed 5, who is doing well with systemic inflammatory response syndrome with acute pulmonary edema, acute congestive heart failure, atypical healthcare-associated pneumonia, the patient was on the Levaquin about a week ago, history of pulmonary embolism and history of hypertension, diabetes, history of colon cancer status post surgery, history of lung cancer and currently on doxycycline day #3, we completed a short course. The patient is doing well. Benjamin Rivero MD
--- NOTE | 2017-09-12 21:07 | PN ---
DATE: 09/12/2017 SUBJECTIVE: The patient has no complaints of any chest pain. No shortness of breath. No headaches. PHYSICAL EXAMINATION VITAL SIGNS: Temperature is 98, pulse of 69, blood pressure 104/50, and respirations 19. GENERAL: The patient is lying in bed, flat, comfortable. HEENT: No oral lesion. Anicteric sclerae. Moist mucosa. NECK: No JVD, adenopathy, or thyromegaly. CARDIOVASCULAR: S1 and S2, regular. No murmurs, rubs, or gallops. LUNGS: Clear to auscultation bilaterally. No wheeze, rales, or rhonchi. ABDOMEN: Bowel sounds are positive, soft, nontender and nondistended. EXTREMITIES: No cyanosis, clubbing or edema. LABORATORY DATA: White count of 10. 4 and hemoglobin 11.5. Creatinine is 1.2, and potassium is 3.4. Chest x-ray done shows persistent right upper lobe infiltrate as well as right base with diminished left upper lung infiltrates. Echo shows a EF of 25-30%. ASSESSMENT: 1. Acute congestive heart failure secondary to systolic dysfunction. 2. Ukkdsqgm-gk-kttdwr pulmonary hypertension. 3. Diabetes type 2. 4. Hypothyroidism. 6. Hypertension. 7. Penicillin/Bactrim allergy. PLAN: The patient is currently comfortable. He is on IV diuretic therapy. His chest x-ray remains abnormal, may need to consider dopamine/dobutamine. There are plans for possible cardiac catheterization according to Dr. Cordero, we will need to hold the patient's Coumadin. The patient is going to continue on Lipitor for dyslipidemia. He is on aspirin. The patient is therapeutic on his Coumadin this morning with a INR of 2.1. He is also continuing metoprolol for his coronary artery disease. He is on BiPAP and being followed by Pulmonary. I did speak to the patient's at bedside at length. I informed her regarding the CHF that the patient has, I believe this is mostly heart failure related. The patient is on oral antibiotics. He is going to continue with Synthroid for hypothyroidism. Aiden Lin MD [facility] # [id number] MTDAnnelise
[2017-09-13 01:11] VITALS: BP 118/59; RESP 22; TEMP 98.3; O2SAT 95
[2017-09-13 03:00] VITALS: PULSE 78
--- NOTE | 2017-09-13 03:08 | PN ---
PULMONARY PROGRESS NOTE DATE: 09/12/2017 REFERRING PHYSICIAN: Aiden Lin MD SUBJECTIVE: The patient is lying in the bed. Night was unremarkable. Could not tolerate BiPAP with the full-face mask. Overall feels better, decreased shortness of breath, has some cough with blood-tinged sputum. No nausea, no vomiting or diarrhea. No leg swelling. OBJECTIVE: GENERAL: No acute distress. VITAL SIGNS: Temperature 98, heart rate 66, respiratory rate is 24, blood pressure 116/60, and pulse ox 92% on nasal cannula. HEENT: Moist mucous membranes. Crowded airway. Mallampati score is IV. NECK: Supple. No JVD. LUNGS: Have crackles. HEART: S1 and S2. ABDOMEN: Soft, nontender. No organomegaly. EXTREMITIES: No edema. NEUROLOGIC: Awake and alert. Follows simple commands. MEDICATIONS: He is on aspirin 81 mg daily, Coumadin 7.5 mg which is on hold, doxycycline 100 mg twice a day, potassium 20 mEq daily, Lasix 40 mg twice a day, Lipitor 40 mg daily, metoprolol tartrate 25 mg twice a day, and Synthroid 75 mcg daily. LABORATORY DATA: Reviewed shows INR 2.86, sodium 140, potassium 3.4, chloride 103, bicarbonate 31, BUN 36, creatinine 1.2, glucose 162, and calcium 9.9. Chest x-ray done today shows persistent right upper lobe infiltrate, also left lower lung infiltrate, and minimal residual infiltrate in both bases again noted. IMPRESSION AND PLAN: Cardiomyopathy, left ventricular ejection fraction of 20%. It could be superimposed pneumonia. Does not have history of lung cancer. Did have colon cancer in the past. There is some chronic infiltrate. Last PET scan was negative for any malignancy. There is a component of sleep apnea syndrome, history of pulmonary embolism, has blood-tinged sputum today. Spoke to patient's at bedside, all their questions answered. Spoke to the nursing staff. I will continue to encourage BiPAP use, may use nasal mask instead of full-face mask. Keep head at 45 degrees. Continue diuretics. Will need cardiac workup including cardiac catheterization. Once stable, we will discharge. The patient will benefit from sleep study. Thank you, and we will follow with you. Thea Coello MD [facility] # [id number]
[2017-09-13] MEDS ORDERED: Amiodarone 150 mg/D5W 100 ml 150 MG/100 ML BAG ONE (05:10)
--- NOTE | 2017-09-13 05:46 | CP.PCM.PN ---
Subjective - Date & Time of Evaluation Date of Evaluation: 09/13/17 Time of Evaluation: 05:00 - Subjective Subjective: Mukarram Amine DO - Code Blue Note for Dr. Baker Responded to bhakti hennessy in the CCU called at 0500. Started ACLS protocol. Patient received total of epinephrine x4, Amiodarone 150mg bolus, 1 amp bicarb, 2 amps calcium chloride, and was shocked 7 times, and was intubated during the protocol. No return of spontaneous circulation despite ACLS protocol for 30 minutes. Time of 0530. Objective - Vital Signs/Intake and Output Vital Signs (last 24 hours): Temp Pulse Resp BP Pulse Ox 98.3 F 78 22 118/59 L 95 09/13/17 00:00 09/13/17 02:00 09/13/17 00:00 09/13/17 00:00 09/13/17 00:00 - Medications Medications: Current Medications Aspirin (Aspirin Chewable) 81 mg PO DAILY [facility] Last Admin: 09/12/17 09:31 Dose: 81 mg Atorvastatin Calcium (Lipitor) 40 mg PO HS [facility] Last Admin: 09/12/17 21:20 Dose: 40 mg Doxycycline Hyclate (Doryx) 100 mg PO Q12 [facility] PRN Reason: Protocol Last Admin: 09/12/17 21:20 Dose: 100 mg Furosemide (Lasix) 40 mg IVP BID [facility] Last Admin: 09/12/17 17:23 Dose: 40 mg Insulin Human Regular (Humulin R Med) 0 units SC ACHS [facility] PRN Reason: Protocol Last Admin: 09/12/17 21:14 Dose: Not Given Levothyroxine Sodium (Synthroid) 75 mcg PO DAILY [facility] Last Admin: 09/12/17 09:31 Dose: 75 mcg Metoprolol Tartrate (Lopressor) 25 mg PO Q12 [facility] Last Admin: 09/12/17 21:16 Dose: 25 mg Potassium Chloride (K-Dur 20 Meq Er Tab) 20 meq PO BRK [facility] Warfarin Sodium (Coumadin) 7.5 mg PO DAILY [facility] PRN Reason: Protocol Last Admin: 09/11/17 10:38 Dose: Not Given - Labs Labs: 09/11/17 06:30 09/12/17 06:30 PT 32.1 SECONDS (9.4-12.5) H 09/12/17 06:30 INR 2.86 (0.93-1.08) H 09/12/17 06:30 APTT 29.0 Seconds (25.1-36.5) 09/10/17 08:30
--- NOTE | 2017-09-13 05:50 | CP.PCM.PRO ---
Pronouncement of Note - Clinical Findings Physical Exam: No Response Verbal/Painful Stimuli, Absent Peripheral Pulses{ Carotid & Femoral}, Absent Heart & Breath Sounds, No Pupillary Light Reflex, No Corneal Reflex, Pupils Fixed & Dilated, Absence of Vital Signs - Pronouncement Time Time of Pronouncement of : 05:30 Additional Comments: Responded to code blue in CCU. ACLS protocol proceeded for 30 minutes, without ROSC. See prior note for details - Notifications Pronouncement Notifications: Family Notified, Atending Notified Dike Supervisor Notified: No - Autopsy Autopsy Requested: No - [place] [id number]
[2017-09-13] MEDS ORDERED: Potassium Chloride 20 mEq ER Tab PO SCH (08:00)
--- NOTE | 2017-09-13 12:01 | DS ---
HOSPITAL COURSE: This is a 77-year-old male who had come in to the hospital with acute CHF. The patient had an echo that showed an EF of 25% to 30%. The patient was placed on IV diuretic therapy and had improvement of his symptoms. Overnight, the patient had gone into Vfib arrest and was not able to get resuscitated. The patient's family was informed. I did speak to the patient's son on the phone to inform him about the expiration. I also spoke to the patient's when I visited the room early this morning to offer my condolences. I answered questions. I spoke to the night nurse who was aware of the Vfib arrest on the monitor that was confirmed on her strips. I did let Dr. Sesay, the patient's oven tender bagels, know. DISCHARGE DIAGNOSES: 1. Acute congestive heart failure secondary to systolic dysfunction. 2. Ajgeeuio-ia-agtfqy pulmonary hypertension. 3. Diabetes type 2. 4. Hypothyroidism. 5. Hypertension. 6. Penicillin/Bactrim allergy. Aiden Lin MD
== END 2017-09-13 05:30 ==
LOC: ED 07:31 → ERH 09:33 → CCU 10:23
PROVIDERS: ADMIT Internal Medicine Nephrology; ATTEND Internal Medicine Nephrology
DX: I21.4 Non-ST elevation (NSTEMI) myocardial infarction (principal); I50.21 Acute systolic (congestive) heart failure; J18.9 Pneumonia, unspecified organism; E87.2 Acidosis; I42.9 Cardiomyopathy, unspecified; R65.10 Systemic inflammatory response syndrome (SIRS) of non-infectious origin without acute organ dysfunction; I13.0 Hypertensive heart and chronic kidney disease with heart failure and stage 1 through stage 4 chronic kidney disease, or unspecified chronic kidney disease; E10.22 Type 1 diabetes mellitus with diabetic chronic kidney disease; I49.01 Ventricular fibrillation; E10.649 Type 1 diabetes mellitus with hypoglycemia without coma; E03.9 Hypothyroidism, unspecified; E10.65 Type 1 diabetes mellitus with hyperglycemia; G47.30 Sleep apnea, unspecified; I27.20 Pulmonary hypertension, unspecified; I35.0 Nonrheumatic aortic (valve) stenosis; J84.10 Pulmonary fibrosis, unspecified; N18.9 Chronic kidney disease, unspecified; R09.02 Hypoxemia; R79.1 Abnormal coagulation profile; Z79.01 Long term (current) use of anticoagulants; Z79.4 Long term (current) use of insulin; Z79.899 Other long term (current) drug therapy; Z85.038 Personal history of other malignant neoplasm of large intestine; Z85.118 Personal history of other malignant neoplasm of bronchus and lung; Z86.711 Personal history of pulmonary embolism; Z88.0 Allergy status to penicillin; Z88.2 Allergy status to sulfonamides; Z92.21 Personal history of antineoplastic chemotherapy; Z96.659 Presence of unspecified artificial knee joint; Z88.5 Allergy status to narcotic agent; E78.5 Hyperlipidemia, unspecified; I25.10 Atherosclerotic heart disease of native coronary artery without angina pectoris